=== PATIENT | female | born 1985 | race Caucasian/White ===

== ENCOUNTER 2017-11-08 20:22 | Emergency (ER) | payer OTHER ==
[~2017-11-08] VITALS: Ht 170.2 cm; Wt 87.1 kg
[2018-04-29] MEDS ORDERED: IBUP600 PO (09:52)
[2018-04-29] MEDS ORDERED: SERT50 PO (09:53)
[2018-04-29] MEDS ORDERED: CYCL10 PO (09:54)
[2018-04-29] MEDS ORDERED: LORZONE750 MG PO (09:54)
[2018-04-29] MEDS ORDERED: Ultram50 MG PO (10:34)
[2018-04-29] MEDS ORDERED: Prednisone20 MG PO (10:34)
== END 2017-11-08 22:08 | disposition home or self-care (01) ==
LOC: ER 20:22
DX: M54.2 Cervicalgia (principal)
CPT/HCPCS: 99282

== ENCOUNTER 2018-02-27 09:53 | Emergency (ER) | payer OTHER ==
[~2018-02-27] VITALS: Ht 170.2 cm; Wt 92.1 kg
== END 2018-02-27 10:43 | disposition home or self-care (01) ==
LOC: ER 09:53
DX: S46.911A Strain of unspecified muscle, fascia and tendon at shoulder and upper arm level, right arm, initial encounter (principal); X50.0XXA Overexertion from strenuous movement or load, initial encounter; Y99.0 Civilian activity done for income or pay
CPT/HCPCS: 99282